=== PATIENT | female | born 1965 | race Hispanic/Latino ===

== ENCOUNTER 2017-02-22 10:23 | Emergency (ER) | payer SELFPAY ==
[2017-02-22 10:55] LABS: #Basophils 0.1 thou/uL (0.0-0.2); #Eosinphils 0.1 thou/uL (0.0-0.7); #Lymphocytes 2.7 thou/uL (1.20-3.40); #Monocytes 0.5 thou/uL (0.11-0.59); #Neutrophils 5.5 thou/uL (1.40-6.50); %Basophils 0.7 % (0.0-1.0); %Eosinophils 0.9 % (0.0-10.0); %Lymphocytes 30.5 % (21.0-51.0); %Monocytes 5.9 % (0.0-10.0); Mean Platelet Volume 6.5 fL (7.4-10.4); Red Blood Cell (RBC) Count 4.57 mill/uL (4.20-5.40); White Blood Cell (WBC) Count 8.9 thou/uL (4.8-10.8)
--- NOTE | 2017-02-22 12:06 | ULT ---
PELVIC ULTRASOUND: History: Abnormal menstrual bleeding for the past 3-4 months. Right upper quadrant abdominal pain. Technique: Multiplanar grayscale and color doppler images were obtained in the transabdominal and tr ansvaginal pelvic ultrasound. Spectral analysis of the doppler waveforms of the ovaries were perform ed. FINDINGS: There are few Nabothian cysts seen in the cervix. The uterus is normal in size and appearance withou t focal abnormality. The endometrial stripe is mildly thickened, measuring 1.9 cm in thickness. Both ovaries are normal in size and appearance. Flow cannot be definitely seen within the right ovar y, likely secondary to the position of the ovary. Normal flow is seen within the left ovary. IMPRESSION: Nabothian cysts; otherwise unremarkable exam. POS: [facility]
== END 2017-02-22 12:00 | disposition home or self-care (01) ==
LOC: ERS 10:23
DX: N93.9 Abnormal uterine and vaginal bleeding, unspecified (principal); F17.200 Nicotine dependence, unspecified, uncomplicated
CPT/HCPCS: 36415; 76856; 84703; 85025

== ENCOUNTER 2018-04-26 07:52 | Outpatient (CLI) | payer OTHER ==
--- NOTE | 2018-04-26 10:40 | MRI ---
RIGHT KNEE MRI WITHOUT IV CONTRAST: Date: 04/26/18 HISTORY: 52-year-old female with history of right knee pain, with concern for medial meniscal tear. Pain for 6 months. TECHNIQUE: Multiplanar, multisequence MRI examination of the knee is performed. FINDINGS: There is some joint fluid in the suprapatellar recess. There is some partial thickness fissures invol ving the central patellar facet cartilage. Lateral meniscus appears unremarkable. The medial meniscus shows some free edge irregularity involving the posterior horn near the posterior root, evidence for a small subsurface tear or focal fraying. There is marked thickening and fluid density within the AC L, evidence for mucoid degeneration. ACL fibers appear intact. Correlate with physical examination in regard to ACL insufficiency. Posterior cruciate ligament is unremarkable. Collateral ligament comple xes are unremarkable. Quadriceps and patellar tendons appear intact. There is minimal abnormal marrow signal involving the lateral femoral condyle, which is in part related to some fairly numerous vascu lar markings. This could possibly represent some very mild contusion. There is a small intraosseous c yst involving the intercondylar eminence region. IMPRESSION: Tricompartment irregular minimal cartilage loss, including some partial thickness fissures of the kylah tral patellar facet, with some joint fluid within the suprapatellar recess. Abnormally dilated and al tered signal change within the ACL, evidence for mucoid degeneration, with intact appearing ACL fiber s. Correlate with physical examination in regards to ACL sufficiency. Minimal free edge irregularity of the posterior horn of the medial meniscus adjacent to the posterior root. Evidence for subsurface free edge tear or focal fraying. Some slightly prominent vessels involving the lateral femoral condyl e with some possible mild associated altered marrow signal. Small intraosseous cyst involving the int ercondylar eminence region. POS: [facility]
== END 2018-04-26 07:53 | disposition home or self-care (01) ==
LOC: MRI 07:52
PROVIDERS: ATTEND Orthopaedic Surgery
DX: M25.561 Pain in right knee (principal); M94.8X6 Other specified disorders of cartilage, lower leg; R93.7 Abnormal findings on diagnostic imaging of other parts of musculoskeletal system; M25.861 Other specified joint disorders, right knee

== ENCOUNTER 2019-05-03 20:33 | Emergency (ER) | payer OTHER, SELFPAY ==
[2019-05-03 21:03] LABS: #Basophils 0.1 thou/uL (0.0-0.2); #Eosinphils 0.1 thou/uL (0.0-0.7); #Lymphocytes 3.1 thou/uL (1.20-3.40); #Monocytes 0.5 thou/uL (0.11-0.59); #Neutrophils 3.2 thou/uL (1.40-6.50); %Basophils 0.9 % (0.0-1.0); %Eosinophils 1.1 % (0.0-10.0); %Lymphocytes 44.8 % (21.0-51.0); %Monocytes 6.9 % (0.0-10.0); %Neutrophils 46.3 % (42.0-75.0); Hemoglobin 14.6 g/dL (12.0-16.0); Mean Corpuscular HGB CONC 34.8 g/dL (32.0-36.0); Mean Corpuscular Hemoglobin 33.8 pg (27.0-31.0); Mean Corpuscular Volume 97.2 fL (78.0-98.0); Mean Platelet Volume 6.9 fL (7.4-10.4); Platelet Count 245 thou/uL (130-400); RBC Distribution Width 11.1 % (11.5-14.5); Red Blood Cell (RBC) Count 4.31 mill/uL (4.20-5.40); White Blood Cell (WBC) Count 6.8 thou/uL (4.8-10.8)
[2019-05-03 21:07] LABS: Bilirubin Negative (Negative); Blood, Urine 1+ (Negative); Clarity Clear (Clear); Glucose, Urine (Dipstick) Normal (Negative); Leukocyte 250 Leu/uL (Negative); Nitrite 1+ (Negative); Protein, Urine (Dipstick) Negative (Neg-Trace); Squamous Epithelial 0-3 HPF (0-3); Urobilinogen Normal mg/dL (Less than 2)
[2019-05-03 21:25] LABS: Bacteria/HPF 3+ HPF (None Seen)
[2019-05-03 21:26] LABS: ALT (SGPT) 20 U/L (8-55); AST (SGOT) 18 U/L (5-34); Albumin 4.3 g/dL (3.5-5.0); Alkaline Phosphatase 80 U/L (40-110); Anion Gap 10 mmol/L (10-20); BUN (Urea Nitrogen) 16 mg/dL (9.8-20.1); Bilirubin, Total 0.5 mg/dL (0.2-1.2); Calc. Creatinine Clearance 0 mL/min (70-130); Calcium 9.6 mg/dL (7.8-10.44); Carbon Dioxide 26 mmol/L (22-29); Chloride 107 mmol/L (98-107); Estimated GFR-MDRD 71; Globulin 2.7 g/dL (2.4-3.5); Glucose 83 mg/dL (70-105); Sodium 139 mmol/L (136-145)
[2019-05-03] MEDS ORDERED: Ciprofloxacin 500 MG TAB ONE (23:15)
[2019-05-03] MEDS ORDERED: Ibuprofen 800 MG TAB ONE (23:15)
== END 2019-05-03 23:19 | disposition home or self-care (01) ==
LOC: ERS 20:33
DX: N12 Tubulo-interstitial nephritis, not specified as acute or chronic (principal); M19.90 Unspecified osteoarthritis, unspecified site; F17.200 Nicotine dependence, unspecified, uncomplicated; Z79.899 Other long term (current) drug therapy
CPT/HCPCS: 36415; 80053; 81003; 81015; 85025; 99284

== ENCOUNTER 2020-11-05 10:10 | Outpatient (CLI) | payer BC | END 2020-11-05 10:11 | disposition home or self-care (01) | LOC: RAD-FRANK 10:10 | PROVIDERS: ATTEND Nurse Practitioner Family | DX: R07.89 Other chest pain (principal) | CPT/HCPCS: 71046 ==

== ENCOUNTER 2021-06-14 09:50 | Outpatient (CLI) | payer BC | END 2021-06-14 09:51 | disposition home or self-care (01) | LOC: RAD-FRANK 09:50 | PROVIDERS: ATTEND Nurse Practitioner Family | DX: R05.9 Cough, unspecified (principal) | CPT/HCPCS: 71046 ==

== ENCOUNTER 2021-11-02 15:47 | Outpatient (CLI) | payer BC | END 2021-11-02 15:48 | disposition home or self-care (01) | LOC: RAD-FRANK 15:47 | PROVIDERS: ATTEND Nurse Practitioner Family | DX: M79.644 Pain in right finger(s) (principal) ==

== ENCOUNTER 2021-12-10 10:37 | Outpatient (CLI) | payer BC | END 2021-12-10 10:38 | disposition home or self-care (01) | LOC: RAD-FRANK 10:37 | PROVIDERS: ATTEND Nurse Practitioner Family | DX: R10.10 Upper abdominal pain, unspecified (principal) | CPT/HCPCS: 74018 ==

== ENCOUNTER 2021-12-30 11:19 | Emergency (ER) | payer BC ==
[2021-12-30] MEDS ORDERED: Iopamidol-370 76% 500 ML 1 ML ONE (11:29)
[2021-12-30] MEDS ORDERED: Ondansetron PF 4 MG/2 ML Vial ONE ×2 (13:21→18:22)
[2021-12-30] MEDS ORDERED: Morphine 4 MG/ML VIAL ONE (13:21)
[2021-12-30] MEDS ORDERED: Ketorolac Tromethamine 30 MG/ML VIAL ONE ×2 (13:21→17:48)
[2021-12-30 13:41] LABS: #Basophils 0.1 thou/uL (0.0-0.2); #Monocytes 0.4 thou/uL (0.11-0.59); #Neutrophils 4.1 thou/uL (1.40-6.50); %Basophils 0.8 % (0.0-1.0); %Eosinophils 0.6 % (0.0-10.0); %Lymphocytes 39.6 % (21.0-51.0); Hemoglobin 13.7 g/dL (12.0-16.0); Mean Corpuscular HGB CONC 33.4 g/dL (32.0-36.0); Mean Corpuscular Hemoglobin 32.9 pg (27.0-31.0); Mean Corpuscular Volume 98.5 fL (78.0-98.0); Mean Platelet Volume 6.5 fL (7.4-10.4); Platelet Count 325 thou/uL (130-400); RBC Distribution Width 11.6 % (11.5-14.5); Red Blood Cell (RBC) Count 4.16 mill/uL (4.20-5.40); White Blood Cell (WBC) Count 7.7 thou/uL (4.8-10.8)
[2021-12-30 14:02] LABS: ALT (SGPT) 20 U/L (8-55); AST (SGOT) 18 U/L (5-34); Alkaline Phosphatase 66 U/L (40-110); Anion Gap 15 mmol/L (10-20); BUN (Urea Nitrogen) 8 mg/dL (9.8-20.1); Bilirubin, Direct 0.2 mg/dL (0.1-0.3); Bilirubin, Total 0.6 mg/dL (0.2-1.2); Calc. Creatinine Clearance 0 mL/min (70-130); Calcium 9.7 mg/dL (7.8-10.44); Carbon Dioxide 26 mmol/L (22-29); Chloride 107 mmol/L (98-107); Estimated GFR 83; Glucose 73 mg/dL (70-105); Lipase 16 U/L (8-78); Potassium 3.7 mmol/L (3.5-5.1); Protein, Total 6.5 g/dL (6.0-8.3); Sodium 144 mmol/L (136-145)
[2021-12-30] MEDS ORDERED: Dicyclomine 20 MG TAB ONE (17:10)
[2021-12-30] MEDS ORDERED: EPINEPHrine 1 MG/ML AMP ONE (17:44)
[2021-12-30] MEDS ORDERED: Bupivacaine PF 0.5% 30 ML VIAL ONE (17:44)
[2021-12-30] MEDS ORDERED: Lidocaine 0.5%/Epinephrine 1:200,000 50 ml Vial ONE (17:44)
[2021-12-30] MEDS ORDERED: Iopamidol 30 ML ONE (17:45)
[2021-12-30] MEDS ORDERED: Famotidine/PF 20 mg/2ml Vial ONE (17:58)
[2021-12-30] MEDS ORDERED: fentaNYL Citrate/PF 100 MCG/2 ML SYRINGE ONE ×2 (17:58→18:02)
[2021-12-30 18:10] LABS: Bilirubin Negative (Negative); Blood, Urine Negative (Negative); Clarity Clear (Clear); Glucose, Urine (Dipstick) Normal (Negative); Ketone, Urine Negative (Negative); Leukocyte Negative Leu/uL (Negative); Nitrite Negative (Negative); Protein, Urine (Dipstick) Negative (Neg-Trace); Specific Gravity, Urine 1.004 (1.002-1.036); Urobilinogen Normal mg/dL (Less than 2); pH, Urine 5.5 (5.0-9.0)
[2021-12-30] MEDS ORDERED: PROPOFOL 200 MG/20 ML VIAL ONE (18:22)
[2021-12-30] MEDS ORDERED: Rocuronium Bromide 10 MG/ML (10ML VIAL) ONE (18:22)
[2021-12-30] MEDS ORDERED: Lidocaine 1% PF 5 ML VIAL ONE (18:22)
[2021-12-30] MEDS ORDERED: Dexamethasone 20 MG/5 ML VIAL ONE (18:22)
[2021-12-30] MEDS ORDERED: Neostigmine Methylsulfate 3 MG/3 ML SYRINGE ONE (18:22)
[2021-12-30] MEDS ORDERED: Glycopyrrolate 0.2 MG/ML 5 ML SYRINGE ONE (18:22)
[2021-12-30 19:10] LABS: SARS-CoV-2 NAA Rapid Test DETECTED (NotDetected)
== END 2021-12-30 18:11 | disposition admitted as inpatient to this hospital (09) ==
LOC: ERS 11:19
PROC: 0FT44ZZ Resection of Gallbladder, Percutaneous Endoscopic Approach (ICD-10-PCS; principal; 2021-12-30)
PROC: BF101ZZ Fluoroscopy of Bile Ducts using Low Osmolar Contrast (ICD-10-PCS; 2021-12-30)
DX: U07.1 COVID-19 (principal); K80.21 Calculus of gallbladder without cholecystitis with obstruction; M19.90 Unspecified osteoarthritis, unspecified site; F17.200 Nicotine dependence, unspecified, uncomplicated; Z79.899 Other long term (current) drug therapy
CPT/HCPCS: 47532; 74178; 76705; 80048; 80076; 81003; 83690; 85025; 88304; 93005; 96374; 96375; 96376; C1713; J0171; J1100; J1610; J1885; J1956; J2001; J2270; J2405; J2704; Q9967; S0020; S0028; U0002

== ENCOUNTER 2022-12-07 09:52 | Outpatient (CLI) | payer BC ==
[2022-12-07 10:43] LABS: #Monocytes 0.4 10x3/uL (0.0-1.1); #Neutrophils 5.7 10x3/uL (1.5-8.4); %Basophils 0.4 % (0.0-2.0); %Eosinophils 0.1 % (0.0-6.0); %Lymphocytes 19.9 % (18.0-47.0); %Monocytes 5.5 % (0.0-10.0); %Neutrophils 73.8 % (40.0-75.0); Hemoglobin 14.7 g/dL (12.0-15.5); Mean Corpuscular HGB CONC 33.3 g/dL (32.0-36.0); Mean Corpuscular Hemoglobin 32.7 pg (27.0-33.0); Mean Corpuscular Volume 98.2 fl (81.6-98.3); Mean Platelet Volume 8.9 fl (7.4-10.4); Platelet Count 263 10x3/uL (150-450); RBC Distribution Width 12.6 % (11.5-14.5); White Blood Cell (WBC) Count 7.7 10x3/uL (3.5-10.5)
== END 2022-12-07 09:53 | disposition home or self-care (01) ==
LOC: LABBT 09:52
PROVIDERS: ATTEND Orthopaedic Surgery Hand Surgery
DX: Z01.812 Encounter for preprocedural laboratory examination (principal); G56.01 Carpal tunnel syndrome, right upper limb
CPT/HCPCS: 85025

== ENCOUNTER 2023-05-08 10:12 | Outpatient (CLI) | payer BC | END 2023-05-08 10:13 | disposition home or self-care (01) | LOC: RAD-FRANK 10:12 | PROVIDERS: ATTEND Nurse Practitioner Family | DX: M25.552 Pain in left hip (principal); M89.8X5 Other specified disorders of bone, thigh ==

== ENCOUNTER 2024-03-01 07:13 | Emergency (ER) | payer BC ==
[2024-03-01] MEDS ORDERED: Cyclobenzaprine 10 MG TAB ONE (07:54)
[2024-03-01] MEDS ORDERED: Ketorolac Tromethamine 30 MG (1 mL) VIAL ONE (07:55)
[2024-03-01] MEDS ORDERED: predniSONE 20 MG TAB ONE (07:55)
== END 2024-03-01 08:18 | disposition home or self-care (01) ==
LOC: ERS 07:13
DX: M54.42 Lumbago with sciatica, left side (principal); F17.200 Nicotine dependence, unspecified, uncomplicated
CPT/HCPCS: 96372; 99283; J1885; J7512